=== PATIENT | female | born 1990 | race Caucasian/White ===

== ENCOUNTER 2017-01-24 19:49 | Emergency (ER) | payer OTHER ==
[~2017-01-24] VITALS: Ht 167.6 cm; Wt 83.0 kg
[~2017-01-24 19:49] MED LIST: ACET500C5 PO
[2017-01-24 19:53] VITALS: Ht 167.6 cm; Wt 83.0 kg
[2017-01-24] MEDS ORDERED: NAPR-688 PO (22:19)
[2017-01-24] MEDS ORDERED: LORA1TAB54 PO (22:20)
--- NOTE | 2017-01-24 22:24 | ERD ---
ER Documentation Chief Complaint Date/Time DATE: 01/24/17 TIME: 22:21 Chief Complaint on and off ear plugged like sensation x2 weeks, recently completed po antbx HPI This 26-year-old female presents emergency room for sensation of having ear plugged with decreased hearing in her left ear for a week following viral upper respiratory infection. She started to feel the same in her right. She did finish a course of amoxicillin which she took without a physician's prescription and thinks it may have helped somewhat. No fever chills. ROS All systems reviewed and are negative except as per history of present illness. Medications Home Meds Active Scripts Loratadine/Pseudoephedrine* (Claritin-D* 12 Hr) 5-120 Mg Tab.er.12h, 1 TAB PO Q12, #14 TAB.SA Prov:MARY GRIMALDO 01/24/17 Naproxen* (Naproxen*) 500 Mg Tablet, 500 MG PO BID Y for PAIN, #14 TAB Prov:DILLANMARYROGER AGUILERA 01/24/17 Reported Medications Acetaminophen* (Tylophen*) 500 Mg Capsule, 500 MG PO Q6H Y for PAIN, TAB 04/15/16 Allergies Allergies: Coded Allergies: No Known Allergy (Unverified , 04/15/16) PMhx/Soc History of Surgery: Yes (3 x CS) Anesthesia Reaction: No Hx Neurological Disorder: No Hx Respiratory Disorders: No Hx Cardiac Disorders: No Hx Psychiatric Problems: No Hx Miscellaneous Medical Probl: No Hx Alcohol Use: No Hx Substance Use: No Hx Tobacco Use: No Smoking Status: Never smoker Physical Exam Vitals Vital Signs Date Time Temp Pulse Resp B/P Pulse Ox O2 Delivery O2 Flow Rate FiO2 01/24/17 19:53 98.1 84 18 124/75 99 Physical Exam Const: [] No distress Head: Atraumatic Eyes: Normal Conjunctiva ENT: Normal External Ears, Nose and Mouth. Tympanic membranes clear bilaterally with some scarring of the left tympanic membrane, no dullness bulging or erythema. Procedures/MDM Decreased sensation and feeling of ear being plugged on the left side likely secondary to eustachian tube dysfunction following upper respiratory infection. For inflammation and when to give her naproxen as well as Claritin-D as a decongestant. I doubt serious bacterial infection especially after course of antibiotics. Recommended ENT follow-up if this does not clear up on its own. Departure Diagnosis: Primary Impression: Eustachian tube dysfunction Condition: Stable Patient Instructions: Eustachian Tube Obstruction (Child) Additional Instructions: Call your primary care doctor TOMORROW for an appointment during the next 2-3 days.See the doctor sooner or return here if your condition worsens before your appointment time. MARY GRIMALDO DO Jan 24, 2017 22:24
== END 2017-01-24 22:35 | disposition home or self-care (01) ==
LOC: FTE 19:49
DX: H69.92 Unspecified Eustachian tube disorder, left ear (principal)
CPT/HCPCS: 99283

== ENCOUNTER 2018-02-24 22:06 | Emergency (ER) | END 2018-02-25 02:40 | disposition home or self-care (01) ==